=== PATIENT | male | born 1965 | race Caucasian/White ===

== ENCOUNTER 2020-08-30 22:46 | Emergency (ER) | payer OTHER, SELFPAY ==
[2020-08-30 22:48] VITALS: BP 136/103; PULSE 86; RESP 15; TEMP 36.6; O2SAT 96; BMI 34.5
--- NOTE | 2020-08-30 23:13 | EX.ED.DYSGE1 ---
HPI History of Present Illness Chief Complaint: Allergic Reaction Detail of Chief Complaint: Bee sting to right eyelid Informant: patient Narrative Narrative: Patient presents to the emergency department with a bee sting to his right upper eyelid and eyebrow that occurred approximately 5:30 PM. Patient states that he was in the drive-through at [employer] when he put his window down to put his order in and a yellow jacket flew in and stung him on the eyelid. Patient denies lip or tongue swelling or difficulty breathing. He denies rash. He denies syncope. He has never had an anaphylactic reaction. Patient has history of hypertension. Prior similar symptoms: No [facility] Medical History (Updated 08/30/20 @ 23:[address] Sandra Reynolds, DO) Hypertension Home Medications losartan 50 mg PO BID 08/30/20 [History Last Taken Unknown] prednisone 20 mg PO BID #4 tab 08/30/20 [Rx Last Taken Unknown] Allergy/AdvReac Type Severity Reaction Status Date / Time tobramycin AdvReac Itching Verified 08/30/20 22:47 Social History Smoking Status: Never smoker ROS ROS ED Constitutional Constitutional ED: Reports systems reviewed and no addt'l complaints, except as documented; Denies body ache(s), change in weight or chills Eyes Eyes: Denies acute decrease in peripheral vision, change in vision, double vision or loss of vision ENT ENT ED: Reports none and other Details: Swelling to right orbit ; Denies ear pain, lip swelling, loss taste/smell, neck pain, otalgia or sore throat Cardiovascular Cardiovascular: Reports none; Denies abdominal pain, chest pain with activity, leg edema, lightheadedness, palpitations, rapid heart rate or syncope Respiratory/Chest Respiratory/Chest: Reports none; Denies change in mental status, dry cough, dyspnea, hemoptysis, shortness of breath at rest or shortness of breath with exertion Gastrointestinal Gastrointestinal: Reports none; Denies abdominal pain, change in stool character, diarrhea, hematemesis, hematochezia, melena, rectal bleeding or vomiting Genitourinary Genitourinary ED: Reports none; Denies abdominal discomfort, anuria, dysuria, genital pain or polyuria Musculoskeletal Musculoskeletal: Reports none; Denies arthralgias, back pain, difficulty walking, extremity pain, muscle weakness or myalgias Integumentary Reports none; Denies abscess or rash Neurologic Neurologic: Reports none; Denies abnormal gait, confusion, focal weakness, frequent falls, headache(s), loss of vision, numbness, paresthesias, radicular pain, vertigo or weakness Psychiatric Psychiatric: Reports systems reviewed and no addt'l complaints, except as documented and none; Denies behavioral changes, confusion, difficulty concentrating, hallucinations, suicidal ideation, tactile hallucinations or visual hallucinations Endocrine Endocrinology: Denies none, cold intolerance, excessive sweating, fatigue or heat intolerance Hematologic/Lymphatic Hematologic/Lymphatic: Reports none; Denies anemia, easy bleeding or easy bruising Allergic/Immunologic Allergic/Immunologic ED: Denies as per HPI, none, lip swelling, mouth swelling, throat swelling, tongue swelling or hives EXAM Physical Exam Const Vital Signs: 08/30/20 22:48 Temperature 97.9 F Temperature Source Temporal Pulse Rate 86 Respiratory Rate 15 Blood Pressure 136/103 H Blood Pressure Mean 114 Pulse Ox 96 Oxygen Delivery Method Room Air Positive well nourished and well developed General Appearance ED: well developed and NAD HEENT Reports TM's clear and moist mucous membranes normocephalic and atraumatic; Negative for trauma or tenderness Tympanic Membrane ED: Yes TM's clear Eyes PERRL and EOMs intact bilaterally Eyes Narrative: Patient has diffuse soft tissue swelling and edema of the right upper lid as well as the lower lid. No cellulitic changes noted. No angioedema noted. General Eye ED: Negative for pale conjunctiva or scleral icterus Neck no lymphadenopathy, supple and no JVD General: Negative for tenderness Chest Wall inspection of chest normal and palpation of chest normal Chest: Negative for tenderness Resp normal respiratory effort and clear to auscultation bilaterally Effort and Inspection: Negative for respiratory distress or pain with movement Auscultation: Negative for rhonchi, wheezes or diminished lung sounds Cardio regular rate, regular rhythm, S1 normal heart sound, S2 normal heart sound and no murmurs Peripheral Pulses: pulses 2+ throughout GI normal to inspection, nondistended, normoactive bowel sounds, soft to palpation, non-tender, non-distended and no masses Back/Spine no CVA tenderness and no thoracic nor lumbar tenderness Extremity normal to inspection General Extremety ED: Negative for edema General Extremity: Negative for edema Neuro oriented x3, CN's II-XII intact bilaterally, no sensory deficits noted and gait normal Sensorium / Orientation: awake, alert, oriented to person, oriented to place and oriented to time Motor Exam: strength 5/5 throughout and strength abnormal Psych mental status grossly normal Skin no rashes or lesions noted and no wounds MDM MDM MDM Narrative Medical decision making narrative: Patient was given prednisone 40 mg p.o. Patient to use ice to the area and ibuprofen or Tylenol for discomfort. Patient to return if lip or tongue swelling or difficulty breathing or condition should worsen anyway. Discharge Plan Triage Chief Complaint: Allergic Reaction ED Provider: Sandra Reynolds Dx/Rx/DC Orders Clinical Impression: Bee sting Instructions: ED Insect Sting, Local Reaction Prescriptions: New prednisone 20 mg tablet 20 mg PO BID Qty: 4 RF: 0 No Action losartan 100 mg Tablet 50 mg PO BID RF: 0 Primary Care Provider: Alf Doctor,Out of Referrals: [facility] Doctor,Out of [Primary Care Provider] - 3-5 Days Disposition Disposition: Home, Self Care
[2020-08-30] MEDS: predniSONE 20 MG Tablet 40 MG PO (23:30)
== END 2020-08-30 23:38 | disposition home or self-care (01) ==
LOC: ED 23:31
PROVIDERS: Emergency Provider Emergency Medicine
DX: T63.441A Toxic effect of venom of bees, accidental (unintentional), initial encounter (principal); I10 Essential (primary) hypertension; Z79.52 Long term (current) use of systemic steroids; Z79.899 Other long term (current) drug therapy
CPT/HCPCS: 99281